=== PATIENT | female | born 1960 | race Caucasian/White ===

== ENCOUNTER 2019-01-09 09:56 | Outpatient (CLI) | payer OTHER, SELFPAY ==
--- NOTE | 2019-01-09 09:30 | DI.RAD_ITS ---
SYMPTOM/DIAGNOSIS: LOWER RESPIRATORY TRACT INFECTION, J22 PA AND LATERAL CHEST: Comparison is made with 06/16/16. Heart size and pulmonary vasculature are within normal limits. There is a small infiltrate in the left lower lobe. The lungs are otherwise clear. No effusions or pneumothoraces are identified. No acute osseous abnormality is identified. IMPRESSION: Left lower lobe infiltrate. This may represent pneumonia or atelectasis.
== END 2019-01-09 10:16 ==
PROVIDERS: PCP Family Medicine; Visit Provider Family Medicine
DX: J22 Unspecified acute lower respiratory infection (principal); R91.8 Other nonspecific abnormal finding of lung field
CPT/HCPCS: 71046

== ENCOUNTER 2019-02-09 02:22 | Outpatient (CLI) | payer OTHER, SELFPAY ==
--- NOTE | 2019-02-09 15:53 | DI.RAD_ITS ---
SYMPTOMS/DIAGNOSIS: LEFT LOWER LOBE PNEUMONIA F/U, J18.9 PA AND LATERAL CHEST: Comparison is made with [id number]. The cardiac and mediastinal contours have a normal appearance. The lungs are well inflated and clear. The previously noted basilar infiltrate has cleared. No new abnormalities are identified. IMPRESSION: Clearing of left lower lobe infiltrate.
== END 2019-02-09 02:42 ==
PROVIDERS: PCP Family Medicine; Visit Provider Family Medicine
DX: J18.9 Pneumonia, unspecified organism (principal)
CPT/HCPCS: 71046

== ENCOUNTER 2019-03-14 00:44 | Outpatient (CLI) | payer OTHER, SELFPAY ==
--- NOTE | 2019-03-14 16:14 | DI.MAMMO_ITS ---
SYMPTOM/DIAGNOSIS: Z12.39, SCREENING MAMMOGRAM: Mammograms were interpreted according to the usual protocol including computer analysis with CAD system, tomosynthesis and C view imaging. The breast tissue is heterogeneously radiodense which lowers the sensitivity of the study. There is no dominant mass.. There are no suspicious calcifications and there has been no significant interval change when compared with prior images. SUMMARY: No evidence of malignancy, Category 1, yearly screening mammography is recommended. Breast density category C MQSA ASSESSMENT OF FINDINGS: Negative. Category 1. Patient will receive a letter notifying them of these results. Bi-RADS category C. The breasts are heterogeneously dense, which may obscure small masses.
== END 2019-03-14 01:04 ==
PROVIDERS: PCP Family Medicine; Visit Provider Obstetrics & Gynecology
DX: Z12.31 Encounter for screening mammogram for malignant neoplasm of breast (principal)
CPT/HCPCS: 77063; 77067

== ENCOUNTER 2019-07-05 03:26 | Outpatient (CLI) | payer OTHER, SELFPAY ==
--- NOTE | 2019-07-05 07:15 | DI.US_ITS ---
EXAM: US ABDOMEN CLINICAL HISTORY: EPIGASTRIC PAIN,R10.13, ? CHOLELITHIASIS. TECHNIQUE: Ultrasound performed using standard protocol. COMPARISON: LEFT BREAST ULTRASOUND from 09/09/2017 FINDINGS: Hepatic parenchyma appears mildly echogenic raising the possibility of hepatic steatosis. No focal h epatic abnormality seen. No evidence of cholelithiasis or biliary dilatation. Pancreas appears inta ct as visualized. Spleen and kidneys are unremarkable in appearance. Abdominal aorta IVC are of nor mal diameter. IMPRESSION: Question hepatic steatosis. No evidence of cholelithiasis.
[2019-07-05 08:48] LABS: Abs Immature Grans 0.01 k/cumm (0.0-0.09); Absolute Basophil Count 0.02 k/cumm (0.0-0.2); Absolute Eosinophil Count 0.26 k/cumm (0.0-0.7); Absolute Lymphocyte Count 1.66 k/cumm (1.2-3.4); Absolute Monocyte Count 0.44 k/cumm (0.11-0.7); Absolute Neutrophil Count 3.09 k/cumm (1.2-6.7); Basophils % 0.4; Eosinophils % 4.7; HCT 45.4 % (36.0-46.0); Immature Grans % 0.2; Lymphocytes % 30.3; Mean Corpuscular Hemoglobin 30.2 pg (27.0-33.0); Mean Corpuscular Volume 91.3 fL (80-95); Mean Platelet Volume 9.9 fL (8.0-11.0); Neutrophils % 56.4; Platelet Count 269 x1000/uL (130-400); RBC 4.97 m/cumm (4.00-5.20); RBC Distribution Width 13.4 % (11.7-14.6); White Blood Cell Count 5.48 k/cumm (4.4-10.8)
[2019-07-05 09:07] LABS: Hemoglobin A1C 5.8 % (4.5-6.2)
[2019-07-05 09:38] LABS: ALT 29 U/L (14-59); AST 19 U/L (15-37); Albumin 4.3 g/dL (3.4-5.0); Alkaline Phosphatase 86 U/L (46-116); Anion Gap 11.1 mmol/L (3-11); BUN 15 mg/dL (7-18); Bilirubin, Total 0.8 mg/dL (0.2-1.0); CO2 28.9 mmol/L (21.0-32.0); CREATININE 0.93 mg/dL (0.55-1.02); Calcium 9.4 mg/dL (8.5-10.1); Calculated LDL 152 mg/dL; Chloride 103 mmol/L (98-107); Cholesterol 232 mg/dL (50-200); Glucose 106 mg/dL (70-100); HDL Cholesterol 54 mg/dL (40-60); Potassium 4.4 mmol/L (3.5-5.1); Sodium 143 mmol/L (136-145); Total Protein 8.2 g/dL (6.4-8.2); Triglyceride 130 mg/dL (30-150)
== END 2019-07-05 03:46 ==
PROVIDERS: PCP Family Medicine; Visit Provider Family Medicine
DX: R10.13 Epigastric pain (principal); K21.9 Gastro-esophageal reflux disease without esophagitis; R73.01 Impaired fasting glucose; K76.89 Other specified diseases of liver
CPT/HCPCS: 36415; 80053; 80061; 76700; 83036; 85025

== ENCOUNTER 2019-08-10 10:41 | Day surgery (SDC) | payer OTHER, SELFPAY ==
[2019-08-10 10:55] VITALS: BP 137/89; PULSE 90; RESP 16; TEMP 36.3; O2SAT 99
--- NOTE | 2019-08-10 11:08 | PDOC.DSDIS_ITS ---
Discharge Plan Disposition Patient Disposition: HOME Condition: Good Discharge Details Reason For Visit: EGD Attending Provider: Nickie Renteria Primary Care Provider: Arsalan Poe Home Meds and New Rx's Prescriptions: New omeprazole 20 mg capsule,delayed release(DR/EC) 20 mg PO BID Qty: 60 RF: 2 Continued mometasone 0.1 % cream 1 applic TP DAILY PRN (Reason: skin irritation) Qty: 50 RF: 5 loratadine [Claritin] 10 mg tablet 10 mg PO DAILY PRNRF: 0 Adult Probiotic 3 billion cell capsule 3,000 mmu cells PO DAILY RF: 0 triamcinolone acetonide [Nasacort] 55 mcg aerosol,spray 2 spray NS DAILY PRNQty: 1 RF: 0 Discontinued omeprazole 40 mg capsule,delayed release(DR/EC) 40 mg PO DAILY Qty: 30 RF: 11 Discharge Instructions Additional Instructions: Findings: Your EGD looked normal. Routine biopsies were done, my office will send a letter with results. Follow up: If the twice a day omeprazole does not help, contact your PCP or my office Please call if you develop: fevers >101.5 Nausea or Vomiting Abdominal pain that is not transient DAY SURGERY UNIT POST EGD INSTRUCTIONS 1. Because there will be medication in your system for the next 24 hours, you may feel a little sleepy. Your coordination will be affected. Therefore: a. Do not drive or operate dangerous equipment for 24 hours. b. Do not drink alcohol beverages for 24 hours (not even beer). c. Plan to go home and rest for the day. 2. Generally there are no restrictions on your activity after a day or so has gone by, but you may feel a bit fatigued for a few days. 3 After you arrive home you may have a light meal and return to a normal diet as you can tolerate it without feeling sick to your stomach. 4. After surgery, you may feel pain or discomfort. This should be only transient, but if it persists please contact your doctor. 5. If there are any questions regarding the findings of your procedure, please f eel free to contact your doctor. 6. If you are unable to contact your doctor with a problem, contact the hospital at [phone]. 7. Continue all your regular medications unless directed otherwise. I understand the above instructions and have no questions. Signature of Patient or Responsible Adult Escort Date/Time Name of Responsible Adult Escort Signature of Nurse Date/Time Activity:: Activity as Tolerated Diet:: As Tolerated Discharge Orders Discharge Orders: Discharge Order (Routine); Ordered 08/10/19 Ordered By: Nickie Renteria DS: Diagnosis Discharge Diagnosis (1) Epigastric burning sensation: Status: Acute
[2019-08-10] MEDS: Lactated Ringers 1,000 ML 80 ML IV (11:33)
--- NOTE | 2019-08-10 12:20 | STOM_PTH ---
PATIENT: Liliana Kimball LOC: [facility] U#:[id number] AGE/SX: 58/F ROOM: RE08/10/[address]: Nickie Renteria MD : 1960 BED: DIS: 08/10/2019 SPEC #: [id number] RECD: 08/10/19 17:17 STATUS: CHUY RECinthya #: [id number] MADAY: 08/10/19 12:[address]: Nickie Renteria DEPT: Surgical Specimen RECD BY: Ivette Wyman ENTERED: 08/10/19 17:17 SP TYPE: STOMACH OTHR DR: Arsalan Poe MD Tissues: 1 - STOMACH BIOPSY Procedures: GROSS AND MICRO LEVEL 4 IMMUNOPEROXIDASE STAIN Comments: [id number]
[2019-08-10 13:14] VITALS: BP 118/75; PULSE 77; RESP 16; TEMP 36.4; O2SAT 100
--- NOTE | 2019-08-10 16:29 | ENDO_ITS ---
DATE OF PROCEDURE: August 10, 2019 PREOPERATIVE DIAGNOSIS: Epigastric burning. POSTOPERATIVE DIAGNOSIS: Normal EGD. PROCEDURE: Esophagogastroduodenoscopy with gastric biopsies. SURGEON: Nickie Renteria M.D. ANESTHESIA: General. INDICATIONS: This is a 58-year-old woman who reports epigastric burning, primarily in the morning an d also sometimes in the afternoon. She does take a daily Omeprazole. She had an upper endoscopy thr ee years ago which was reportedly normal. PROCEDURE: She was placed in the left lateral decubitus position. Propofol was titrated to sedatio n. The scope was advanced into her esophagus under direct visualization and passed down into the sto mach and duodenum. There was no duodenitis or ulcers noted. The stomach itself appeared normal, inc luding on retroflex view of the fundus and lesser curvature. No ulcers or inflammation was present. Biopsies were taken from the gastric body to evaluate for H. pylori. The GE junction exhibited no m asses, Barrera's, inflammation or strictures. The air was suctioned from the stomach and the scope w ithdrawn with no other esophageal lesions found. She tolerated the procedure well and was stable to recovery. We discussed splitting her dose of Omeprazole so she takes 20 mg in the morning and 20 mg in the even ing to see if this will control her morning symptoms better. She will contact me or her PCP in a tue if her symptoms persist. cc: Arsalan Poe M.D.
== END 2019-08-10 13:38 | disposition home or self-care (01) ==
PROVIDERS: PCP Family Medicine; Visit Provider Surgery
PROC: 0DJ68ZZ Inspection of Stomach, Via Natural or Artificial Opening Endoscopic (ICD-10-PCS; CPT 43235; principal; 2019-08-10 12:00)
DX: R10.13 Epigastric pain (principal); K21.9 Gastro-esophageal reflux disease without esophagitis; K29.50 Unspecified chronic gastritis without bleeding
CPT/HCPCS: 43239; 88305; 88361

== ENCOUNTER 2019-11-19 07:08 | Outpatient (CLI) | payer OTHER, SELFPAY ==
[2019-11-19 08:07] LABS: ALT 21 U/L (14-59); Calculated LDL 117 mg/dL (<100); Cholesterol 180 mg/dL (<200); HDL Cholesterol 42 mg/dL (40-60); Triglyceride 107 mg/dL (<150)
== END 2019-11-19 07:28 ==
PROVIDERS: PCP Family Medicine; Visit Provider Family Medicine
DX: E78.00 Pure hypercholesterolemia, unspecified (principal)
CPT/HCPCS: 36415; 80061; 84460

== ENCOUNTER 2020-08-21 01:16 | Outpatient (CLI) | payer OTHER, SELFPAY ==
--- NOTE | 2020-08-21 | DI.MAMMO_ITS ---
EXAM: MG MAMMO SCREENING CLINICAL HISTORY: SCREENING,Z12.39 TECHNIQUE: Bilateral full field digital CC and MLO mammographic images were obtained with 3D tomosyn thesis and utilizing computer aided detection (CAD). COMPARISON: Available for comparison. FINDINGS: Masses/Architectural Distortion: None seen. Microcalcifications: No suspicious pleomorphic-type are seen. Skin Thickening/Nipple Retraction: None. IMPRESSION: 1. No significant interval change with no specific features of malignancy noted. 2. Unless there is more urgent need, screening mammography is recommended, as per [employer] guidelines. BI-RADS Category 1 - Negative Breast Density - Category C - Heterogeneously dense The mammogram demonstrates the patient's breast tissue is dense. Dense breast tissue is very common a nd is not abnormal but dense breast tissue can make it harder to find cancer on a mammogram. Also, de nse breast tissue may increase their breast cancer risk. This information about the result of the [facility] mogram report was provided to the patient to raise their awareness. Use this report when you speak wi th the patient about their risks for breast cancer, which includes their family history. At that time , you may recommend for more screening tests (Ultrasound or MRI) as they might be useful based on the ir risk. A negative radiographic report should not delay biopsy if a dominant or clinically suspicious mass is present. Up to ten percent of cancers are not identified on mammography. A negative report may reinforce clinical impression. Adenosis and dense breasts may obscure an underlying neoplasm. False positive reports average 6 to 10%. Patient will receive a letter notifying them of these results.
== END 2020-08-21 01:36 ==
PROVIDERS: PCP Family Medicine; Visit Provider Nurse Practitioner Women's Health
DX: Z12.31 Encounter for screening mammogram for malignant neoplasm of breast (principal)
CPT/HCPCS: 77063; 77067

== ENCOUNTER 2021-08-26 01:49 | Outpatient (CLI) | payer OTHER, SELFPAY ==
--- NOTE | 2021-08-26 | DI.MAMMO_ITS ---
Exam(s) MAMMO SCREENING EXAM: MAMMO SCREENING CLINICAL HISTORY: SCREENING,Z12.31 TECHNIQUE: Mammograms were interpreted according to the usual protocol including computer analysis w [employer] CAD system, tomosynthesis and C-view imaging. COMPARISON: FINDINGS: The breasts are moderate density with fairly symmetrical distribution of fibroglandular tissue. No d ominant mass or clumped microcalcification is identified in either breast. The current examination i s compared with previous examinations including August 2020 and there has been no gross interval ch juan c in appearance in comparison with the prior studies. IMPRESSION: No specific evidence of malignancy at this time. Routine screening examinations are suggested at yea rly intervals in this age group according to the ACS ACR guidelines. BI-RADS Category 1 - Negative Breast Density - Category B - Scattered areas of fibroglandular density
== END 2021-08-26 02:09 ==
PROVIDERS: PCP Nurse Practitioner Family; Visit Provider Nurse Practitioner Women's Health
DX: Z12.31 Encounter for screening mammogram for malignant neoplasm of breast (principal)
CPT/HCPCS: 77063; 77067

== ENCOUNTER 2022-06-08 16:41 | Outpatient (CLI) | payer OTHER, SELFPAY ==
--- NOTE | 2022-06-08 16:30 | RT.EKG_ITS ---
APPROVED REPORT Exam: Resting ECG Reason for Exam: Chest discomfort Patient Location: O HR:69 bpm ECG Measurements Heart Rate 69 AXIS ND 120 P 40 QRSd 86 QRS 39 QT 398 T 43 QTc 427 Conclusion Sinus rhythm...normal P axis, V-rate 50- 99 Low voltage, extremity leads...all extremity leads <0.5mV Baseline wander in lead(s) V5
== END 2022-06-08 16:42 | disposition home or self-care (01) ==
LOC: DI.CM 16:42
PROVIDERS: PCP Nurse Practitioner Family; Visit Provider Physician Assistant
DX: R07.89 Other chest pain (principal)
CPT/HCPCS: 93010

== ENCOUNTER 2022-10-22 00:10 | Outpatient (CLI) | payer OTHER, SELFPAY ==
--- NOTE | 2022-10-22 15:30 | DI.MAMMO_ITS ---
Exam(s) MAMMO SCREENING EXAM: MAMMO SCREENING CLINICAL HISTORY: SCREENING,Z12.31 TECHNIQUE: Bilateral full field digital CC and MLO mammographic images were obtained with 3D tomosyn thesis and utilizing computer aided detection (CAD). COMPARISON: Available for comparison. FINDINGS: Masses/Architectural Distortion: There is a focal asymmetry in the upper central right breast on the MLO view. Microcalcifications: No suspicious pleomorphic-type are seen. Skin Thickening/Nipple Retraction: None. IMPRESSION: 1. Asymmetric breast tissue in the upper central right breast on the MLO view. 7 cm from the nipple. This may represent overlying fibroglandular tissue. 2. A spot compression views requested for further evaluation. Limited right breast ultrasound may be indicated at that time. BI-RADS Category 0 - Assessment Incomplete: Need additional imaging evaluation Breast Density - Category B - Scattered areas of fibroglandular density Breast density category C or D implies that the patient has dense breast tissue. Dense breast tissue is very common and is not abnormal but dense breast tissue can make it harder to find cancer on a ma mmogram. Also, dense breast tissue may increase their breast cancer risk. This information about the result of the mammogram report was provided to the patient to raise their awareness. Use this report when you speak with the patient about their risks for breast cancer, which includes their family hist ory. At that time, you may recommend for more screening tests (Ultrasound or MRI) as they might be us eful based on their risk. A negative radiographic report should not delay biopsy if a dominant or clinically suspicious mass is present. Up to ten percent of cancers are not identified on mammography. A negative report may reinforce clinical impression. Adenosis and dense breasts may obscure an underlying neoplasm. False positive reports average 6 to 10%. Patient will receive a letter notifying them of these results.
== END 2022-10-22 00:30 ==
LOC: DI 00:12
PROVIDERS: PCP Nurse Practitioner Family; Visit Provider Nurse Practitioner Women's Health
DX: Z12.31 Encounter for screening mammogram for malignant neoplasm of breast (principal); N64.89 Other specified disorders of breast; R92.8 Other abnormal and inconclusive findings on diagnostic imaging of breast
CPT/HCPCS: 77063; 77067

== ENCOUNTER 2022-10-27 01:13 | Outpatient (CLI) | payer OTHER, SELFPAY ==
--- NOTE | 2022-10-27 | DI.MAMMO_ITS ---
Exam(s) MAMMO SCREEN CALL BACK UNI EXAM: MAMMO SCREEN CALL BACK UNI CLINICAL HISTORY: F/U ABNL MAMMO, FOCAL ASYMMETRY UPPER CENTRAL RT BREAST TECHNIQUE: Spot compression views with tomographic imaging were performed. COMPARISON: 2012 through recent exam 22 October 2022 FINDINGS: No suspicious masses or suspicious microcalcifications are seen. No persistent abnormality is seen on the additional views performed. The findings are consistent wit h overlying fibroglandular tissue. There has been no significant change from prior exams. IMPRESSION: BI-RADS Category 1, Negative Yearly screening mammography is recommended. Breast Density - Category B, scattered fibroglandular densities.
== END 2022-10-27 01:33 ==
PROVIDERS: PCP Nurse Practitioner Family; Visit Provider Nurse Practitioner Women's Health
DX: Z12.31 Encounter for screening mammogram for malignant neoplasm of breast (principal); R92.8 Other abnormal and inconclusive findings on diagnostic imaging of breast; N64.59 Other signs and symptoms in breast
CPT/HCPCS: 77063; 77067

== ENCOUNTER → 2023-12-19 03:31 | Outpatient (CLI) | payer OTHER, SELFPAY ==
--- NOTE | 2023-12-19 09:00 | DI.MAMMO_ITS ---
Exam(s) MAMMO SCREENING EXAM: MAMMO SCREENING CLINICAL HISTORY: screening,z12.39. TECHNIQUE: Bilateral full field digital CC and MLO mammographic images were obtained with 3D tomosyn thesis and utilizing computer aided detection (CAD). COMPARISON: Prior mammograms were reviewed. FINDINGS: There has been no significant change in the appearance and distribution of the fibroglandular tissue. Asymmetric densities in the right breast are unchanged from prior mammograms as is an asymmetric smal l density in the lateral aspect of the left breast. There are no new spiculated masses nor malignant appearing microcalcification groups. There is no significant architectural distortion nor skin thickening-retraction. IMPRESSION: No radiographic evidence of malignancy. BI-RADS Category 2 - Benign Findings Breast Density - Category B - Scattered areas of fibroglandular density Breast density Category C or D implies that the patient has dense breast tissue. Dense breast tissue can make it harder to find cancer on a mammogram. Dense breast tissue is also associated with an incr eased risk of breast cancer. This information about the result of the mammogram report was provided to the patient to raise their awareness. Use this report when you speak with the patient about their risks for breast cancer, which includes their family history. At that time, you may recommend additional screening tests (Ultrasoun d or MRI) as these tests may add significant information. A negative radiographic report should not delay biopsy if a dominant or clinically suspicious mass is present. Up to ten percent of cancers are not identified on mammography. A negative report may reinforce clinical impression. Adenosis and dense breasts may obscure an underlying neoplasm. False positive reports average 6 to 10%. Patient will receive a letter notifying them of these results.
== END ==
PROVIDERS: PCP Nurse Practitioner Family; Visit Provider Nurse Practitioner Family
DX: Z12.31 Encounter for screening mammogram for malignant neoplasm of breast (principal)
CPT/HCPCS: 77063; 77067

== ENCOUNTER 2023-12-27 05:14 | Outpatient (CLI) | payer OTHER, SELFPAY ==
[2023-12-27 07:50] LABS: Hemoglobin A1C 5.9 % (<5.7)
[2023-12-27 08:53] LABS: Anion Gap 9.4 mmol/L (3-11); BUN 27 mg/dL (7-18); CO2 27.6 mmol/L (21.0-32.0); CREATININE 0.9 mg/dL (0.55-1.02); Calculated LDL 143 mg/dL (<100); Chloride 103 mmol/L (98-107); Cholesterol 218 mg/dL (<200); Estimated GFR 71.39 (mL/min/1.73m2); Glucose 111 mg/dL (74-106); HDL Cholesterol 52 mg/dL (40-60); Potassium 3.9 mmol/L (3.5-5.1); Sodium 140 mmol/L (136-145); TSH (W/Ref FT4) 0.54 uIU/mL (0.36-3.74); Triglyceride 115 mg/dL (<150)
[2023-12-27 20:19] LABS: Hepatitis C Ab w Rflx HCV PCR Negative (Negative)
== END 2023-12-27 05:15 | disposition home or self-care (01) ==
PROVIDERS: PCP Nurse Practitioner Family; Visit Provider Nurse Practitioner Family
DX: Z00.00 Encounter for general adult medical examination without abnormal findings (principal)
CPT/HCPCS: 36415; 80048; 80061; 86803; 83036; 84443

== ENCOUNTER 2025-01-09 00:48 | Outpatient (CLI) | payer OTHER, SELFPAY ==
--- NOTE | 2025-01-09 | DI.MAMMO_ITS ---
Exam(s) MAMMO SCREENING EXAM: MAMMO SCREENING CLINICAL HISTORY: Screening, Z12.31 TECHNIQUE: Mammograms were interpreted according to the usual protocol including computer analysis w [employer] CAD system, tomosynthesis and C-view imaging. COMPARISON: 2015 through 2023 FINDINGS: The breasts are composed of scattered fibroglandular densities, Breast Density category B. No suspicious masses or suspicious microcalcifications are seen. No skin thickening or abnormal axillary lymph nodes are seen. There has been no significant change from prior exams. IMPRESSION: BI-RADS Category 1, Negative mammogram Yearly screening mammography is recommended. Breast Density - Category B, scattered fibroglandular densities. A negative radiographic report should not delay biopsy if a dominant or clinically suspicious mass is present. Up to ten percent of cancers are not identified on mammography. A negative report may reinforce clinical impression. Adenosis and dense breasts may obscure an underlying neoplasm. False positive reports average 6 to 10%. Patient will receive a letter notifying them of these results.
== END 2025-01-09 01:08 ==
LOC: DI 00:48
PROVIDERS: PCP Nurse Practitioner Family; Visit Provider Nurse Practitioner Women's Health
DX: Z12.31 Encounter for screening mammogram for malignant neoplasm of breast (principal); R92.323 Mammographic fibroglandular density, bilateral breasts
CPT/HCPCS: 77063; 77067

== ENCOUNTER 2025-01-18 00:53 | Outpatient (CLI) | payer OTHER, SELFPAY ==
[2025-01-18 07:59] LABS: BUN 17 mg/dL (7-18); Calcium 9.3 mg/dL (8.5-10.1); Calculated LDL 138 mg/dL (<100); Chloride 107 mmol/L (98-107); Cholesterol 214 mg/dL (<200); Estimated GFR 62.52 (mL/min/1.73m2); Glucose 107 mg/dL (74-106); HDL Cholesterol 57 mg/dL (>or=50); Sodium 144 mmol/L (136-145); Triglyceride 95 mg/dL (<150)
[2025-01-18 08:05] LABS: Hemoglobin A1C 5.7 % (<5.7)
== END 2025-01-18 00:54 | disposition home or self-care (01) ==
LOC: LBO 00:53
PROVIDERS: PCP Nurse Practitioner Family; Visit Provider Nurse Practitioner Family
DX: E78.5 Hyperlipidemia, unspecified (principal); R73.03 Prediabetes
CPT/HCPCS: 36415; 80048; 80061; 83036

== ENCOUNTER 2025-02-18 17:16 | Outpatient (REF) | payer OTHER, SELFPAY ==
[2025-02-18 17:06] LABS: Abs Immature Grans 0.03 10^3/uL (0.0-0.06); Absolute Basophil Count 0.04 10^3/uL (0.0-0.2); Absolute Eosinophil Count 0.41 10^3/uL (0.0-0.7); Absolute Lymphocyte Count 1.95 10^3/uL (1.2-3.4); Absolute Monocyte Count 0.44 10^3/uL (0.1-0.8); Basophils % 0.6 %; Eosinophils % 6.1 %; HCT 42.2 % (36.0-46.0); HGB 13.9 g/dL (11.2-15.7); Immature Grans % 0.4 %; Lymphocytes % 29.2 %; MCH 30.7 pg (27.0-33.0); MCHC 32.9 % (32.0-36.0); MCV 93 fL (80-95); MPV 11.4 fL (8.0-11.0); Monocytes % 6.6 %; Neutrophils % 57.1 %; Platelet Count 270 10^3/uL (130-400); RBC 4.53 10^6/uL (3.93-5.22); RDW 12.8 % (11.7-14.6); RDW-SD 43.9 fL; WBC 6.67 10^3/uL (4.4-10.8)
[2025-02-20 10:11] LABS: Lyme Ab w Rflx to Lyme Confirm Negative (Negative)
[2025-02-21 20:57] LABS: Anaplasma phagocytophilum Negative (Negative); B. miyamotoi PCR Negative (Negative); Babesia divergens/MO-1 Negative (Negative); Babesia duncani Negative (Negative); Babesia microti Negative (Negative); Ehrlichia chaffeensis Negative (Negative); Ehrlichia ewingii/canis Negative (Negative); Ehrlichia muris eauclairensis Negative (Negative)
== END 2025-02-18 17:17 | disposition home or self-care (01) ==
LOC: LBN 17:16
PROVIDERS: PCP Nurse Practitioner Family; Visit Provider Physician Assistant
DX: S80.862A Insect bite (nonvenomous), left lower leg, initial encounter
CPT/HCPCS: 87798; 85025; 86618

== ENCOUNTER 2025-04-08 03:44 | Outpatient (CLI) | payer OTHER, SELFPAY ==
[2025-04-10 11:27] LABS: Lyme Ab w Rflx to Lyme Confirm Negative (Negative)
[2025-04-11 22:01] LABS: B. miyamotoi PCR Negative (Negative); Babesia divergens/MO-1 Negative (Negative); Ehrlichia muris eauclairensis Negative (Negative)
== END 2025-04-08 03:45 | disposition home or self-care (01) ==
LOC: LBO 03:44
PROVIDERS: PCP Nurse Practitioner Family; Visit Provider Nurse Practitioner Family
DX: W57.XXXA Bitten or stung by nonvenomous insect and other nonvenomous arthropods, initial encounter (principal); T14.90XA Injury, unspecified, initial encounter
CPT/HCPCS: 36415; 87798; 86618

== ENCOUNTER 2025-04-15 02:19 | Outpatient (CLI) | payer OTHER, MEDICARE, SELFPAY ==
--- NOTE | 2025-04-15 08:00 | DI.RAD_ITS ---
Exam(s) XR FOOT RT COMPLETE EXAM: XR FOOT RT COMPLETE CLINICAL HISTORY: Right foot pain,m79.671. TECHNIQUE: 2D digital imaging was performed. COMPARISON: CR XR FOOT LT COMPLETE from 04/15/2025 FINDINGS: 3 views There is no evidence of fracture or diastasis of the Lisfranc joint. There is hallux valgus noted, similar to the opposite-left side. There are minimal degenerative changes in the great toe metatarsophalangeal joint. Other articulations appear unremarkable in the foot. No pes planus. Small inferior calcaneal spur is noted. IMPRESSION: Hallux valgus DATA REPOSITORY: RADIATION DOSE DELIVERED:
--- NOTE | 2025-04-15 08:00 | DI.RAD_ITS ---
Exam(s) XR FOOT LT COMPLETE EXAM: XR FOOT LT COMPLETE CLINICAL HISTORY: Left foot pain,m79.672. TECHNIQUE: 2D digital imaging was performed. COMPARISON: No exams were available for comparison FINDINGS: 3 views No evidence of acute fracture or diastasis of the Lisfranc joint. There is hallux valgus noted. The more medial of the 2 sesamoid bones subjacent to the great toe metatarsal head is noted to be bipartite. There are mild degenerative changes in the great toe metatarsophalangeal joint. Small inferior calcaneal spur noted. Bone density normal. No osseous lesions. IMPRESSION: Hallux valgus DATA REPOSITORY: RADIATION DOSE DELIVERED:
== END 2025-04-15 02:39 ==
LOC: DI 02:23
PROVIDERS: PCP Nurse Practitioner Family; Visit Provider Podiatrist
DX: M79.671 Pain in right foot (principal); M79.672 Pain in left foot; M20.12 Hallux valgus (acquired), left foot; M20.11 Hallux valgus (acquired), right foot
CPT/HCPCS: 73630

== ENCOUNTER → 2025-09-23 00:56 | Outpatient (CLI) | payer OTHER, SELFPAY ==
--- NOTE | 2025-09-23 | DI.DEXA_ITS ---
Exam(s) XR DEXA BONE DENSITY W/WO VICKI EXAM: XR DEXA BONE DENSITY W/WO VICKI CLINICAL HISTORY: osteoporosis screening,postmenopausal status,z78.0 TECHNIQUE: COMPARISON: No exams were available for comparison FINDINGS: Lateral Spine Image: Unremarkable. No compression deformities identified. Left hip: Total T-Score: -2.4 Total Z-Score: -1.1 T- and Z-scores: There is osteoporosis in the femoral neck with a T-score of - 2.8. Lumbar Spine: Total T-Score: -3.3 Total Z-Score: -1.4 T- and Z-scores: Findings are consistent with osteoporosis. There is osteoporosis in the left forearm with a total T-score of -2.9 and Z- score of -1.3. IMPRESSION: Osteoporosis is seen in the left forearm, lumbar spine and the left femoral neck.
== END ==
LOC: DI 00:56
PROVIDERS: PCP Nurse Practitioner Family; Visit Provider Nurse Practitioner Family
DX: Z78.0 Asymptomatic menopausal state (principal); M81.0 Age-related osteoporosis without current pathological fracture
CPT/HCPCS: 77080